=== PATIENT | female | born 1990 | race African-American/Black ===

== ENCOUNTER 2020-02-28 22:06 | Emergency (ER) | payer OTHER ==
[~2020-02-28] VITALS: Ht 162.6 cm; Wt 70.8 kg
[2020-02-28 22:10] VITALS: BP 132/92
--- NOTE | 2020-02-28 22:22 | Emergency Room Report ---
History of Present Illness General Chief Complaint: Flu Like Symptoms Source: Patient Present Illness HPI Disclaimer: Please note that this report is being documented using DRAGON technology. This can lead to erroneous entry secondary to incorrect interpretation by the dictating instrument. HPI: 29-year-old otherwise healthy female presents for evaluation of "heartburn. " She is recently returned from [place] after which she began to experience flu- like symptoms approximately 1 week ago including anosmia, loss of taste, fatigue , generalized body aches. She suspect she has COVID-19 and has been quarantining. She is also being treated for UTIs on Keflex. She states she has been taking Keflex and has since been experiencing urticaria causing her to stop taking it today. This afternoon after eating a sandwich she experienced some severe acid reflux type symptoms causing burning and squeezing sensation in the chest, diaphoresis and mild epigastric discomfort. Denies shortness of breath, loss of consciousness. Improved after taking Tums and continues to improve now. She states she has had similar heartburn type symptoms in the past but never this severe. She came in for evaluation of her fear that it may be a complication of COVID-19. She currently denies any chest pain, shortness of breath but is complaining of severe fatigue, exertional dyspnea. Denies fevers, nausea, vomiting, diarrhea. 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: No Patient History Last Menstrual Period: 1 month ago Now: No : 0 Para: 0 Nursing Documentation-PMH Past Medical History: No Stated History Hx Cardiac Problems: No Hx Hypertension: No Hx Pacemaker: No Hx Asthma: No Hx COPD: No Hx Diabetes: No Hx Cancer: No Hx Gastrointestinal Problems: No Hx Dialysis: No History Of Psychiatric Problem: No Hx Neurological Problems: No Hx Cerebrovascular Accident: No Hx Seizures: No Review of Systems All Other Systems: negative except mentioned in HPI Physical Exam Vital Signs Date Time Temp Pulse Resp B/P (MAP) Pulse Ox O2 Delivery O2 Flow Rate FiO2 02/28/20 22:02 98.4 106 18 132/92 (105) 98 Room Air General: Awake and alert, no acute distress HEENT: NC/AT. EOMI. Cardiovascular: Mildly tachycardic Resp: Normal work of breathing. No cough, wheezing or crackles appreciated Abdomen: Abdomen is soft, nondistended. Nontender Skin: Intact. No abrasions, laceration or rash over the exposed skin MSK: Normal tone and bulk. Moving all extremities. No obvious deformity. Neuro: Awake and alert. Mentating appropriately. Medical Decision Making Diagnostic Impression: Primary Impression: Suspected 2019 novel coronavirus infection Additional Impressions: GERD (gastroesophageal reflux disease) Medication reaction ER Course 29-year-old female presents for evaluation of chest discomfort. Differential includes is not meant to GERD, gastritis, gastroenteritis, bronchospasm, esophagitis, viral syndrome, COVID-19, ACS, arrhythmia, pneumonia, bronchitis, pneumothorax, untreated UTI, pancreatitis to name a few. Patient arrived mildly tachycardic in triage however this is improved. She is saturating 98% in no respiratory distress and denies respiratory symptoms at this time. EKG is nonischemic and chest x-ray shows no evidence of infiltrate. Labs have returned within normal limits including a negative troponin. I feel her symptoms are secondary to GERD and likely COVID-19 infection given her symptoms of anosmia, loss of taste and her recent travel. I instructed her to obtain outpatient COVID-19 testing and to inform all close contacts as well as the airlines she recently used to travel from [place]. Patient states she will get tested tomorrow. She is to remain in isolation as she has been. Regarding her reaction to Keflex, we will discontinue Keflex and start her on Macrobid for treatment of her UTI. She is stable for outpatient follow-up. We discussed reasons to return to the emergency department and need to follow-up with her PMD. She understands and agrees with this treatment plan will be discharged home. Laboratory Tests Test 02/28/20 22:35 White Blood Count 9.7 K/UL (4.8-10.8) Red Blood Count 5.55 M/UL (4.20-5.40) H Hemoglobin 15.5 G/DL (12.0-16.0) Hematocrit 47.0 % (37.0-47.0) Mean Corpuscular Volume 85 FL (80-99) Mean Corpuscular Hemoglobin 27.9 PG (27.0-31.0) Mean Corpuscular Hemoglobin Concent 32.9 G/DL (32.0-36.0) Red Cell Distribution Width 12.1 % (11.6-14.8) Platelet Count 243 K/UL (150-450) Mean Platelet Volume 7.0 FL (6.5-10.1) Neutrophils (%) (Auto) 70.7 % (45.0-75.0) Lymphocytes (%) (Auto) 24.3 % (20.0-45.0) Monocytes (%) (Auto) 3.6 % (1.0-10.0) Eosinophils (%) (Auto) 0.6 % (0.0-3.0) Basophils (%) (Auto) 0.8 % (0.0-2.0) Sodium Level 137 MMOL/L (136-145) Potassium Level 3.1 MMOL/L (3.5-5.1) L Chloride Level 100 MMOL/L (98-107) Carbon Dioxide Level 23 MMOL/L (21-32) Anion Gap 14 mmol/L (5-15) Blood Urea Nitrogen 10 mg/dL (7-18) Creatinine 1.1 MG/DL (0.55-1.30) Estimated Glomerular Filtration Rate > 60 mL/min (>60) Glucose Level 104 MG/DL (74-106) Calcium Level 9.9 MG/DL (8.5-10.1) Total Bilirubin 0.3 MG/DL (0.2-1.0) Aspartate Amino Transferase (AST) 24 U/L (15-37) Alanine Aminotransferase (ALT) 45 U/L (12-78) Alkaline Phosphatase 66 U/L (46-116) Troponin I 0.000 ng/mL (0.000-0.056) Total Protein 8.2 G/DL (6.4-8.2) Albumin 4.9 G/DL (3.4-5.0) Globulin 3.3 g/dL Albumin/Globulin Ratio 1.5 (1.0-2.7) Lipase 119 U/L (73-393) EKG Diagnostic Results EKG Time: 22:50 Rate: normal Rhythm: NSR ST Segments: no acute changes Other Impression Sinus rhythm, normal axis, normal intervals, nonspecific T wave flattening. No significant ST segment changes. Rhythm Strip Diag. Results Rhythm Strip Time: 22:50 EP Interpretation: yes Rate: 78 Rhythm: NSR, no PVC's, no ectopy Chest X-Ray Diagnostic Results Chest X-Ray Diagnostic Results : Chest X-Ray Ordered: Yes # of Views/Limited/Complete: 1 View Indication: Chest Pain EP Interpretation: Yes Interpretation: no consolidation, no effusion, no pneumothorax, no acute cardiopulmonary disease Impression: No acute disease Electronically Signed by: Electronically signed by Dr. Krzysztof Austin Last Vital Signs Date Time Temp Pulse Resp B/P (MAP) Pulse Ox O2 Delivery O2 Flow Rate FiO2 02/28/20 22:02 98.4 106 18 132/92 (105) 98 Room Air Disposition: HOME, SELF-CARE Condition: Stable Scripts Calcium Carbonate/Simethicone (MAALOX ADVANCED TAB CHEW) 1 Each Tab.chew 1 EACH PO TID PRN for GERD for 10 Days, #30 TAB Prov: Krzysztof Austin MD 02/28/20 Famotidine* (Pepcid 20mg tablet*) 20 Mg Tablet 20 MG ORAL DAILY, #30 TAB 0 Refills Prov: Krzysztof Austin MD 02/28/20 Nitrofurantoin Monohyd/M-Cryst* (MACROBID 100 MG*) 100 Mg Capsule 100 MG ORAL EVERY 12 HOURS for 5 Days, #10 CAP Prov: Krzysztof Austin MD 02/28/20 Krzysztof Austin MD Feb 28, 2020 22:22
[2020-02-28] MEDS ORDERED: Mylanta II UD 30ml ORAL ONE (22:30)
[2020-02-28] MEDS ORDERED: Dicyclomine HCl 10mg/5ml oral soln ORAL ONE (22:30)
[2020-02-28] MEDS ORDERED: Lidocaine 2% Visc 15ml soln ORAL ONE (22:30)
--- NOTE | 2020-02-28 22:53 | Diagnostic Imaging Report ---
EXAM: XR Chest, 1 View CLINICAL HISTORY: CP TECHNIQUE: Frontal view of the chest. COMPARISON: None. FINDINGS: Lungs: The lungs are well aerated. No consolidative change. Pleural space: No pleural effusions. No pneumothorax per Heart: Cardiomediastinal silhouette unremarkable per Mediastinum: See above. Bones/joints: Osseous structures are unremarkable. IMPRESSION: No active disease.
[2020-02-28 22:54] LABS: BASOPHILS % (AUTO) 0.8 % (0.0-2.0); EOSINOPHILS % (AUTO) 0.6 % (0.0-3.0); HEMOGLOBIN 15.5 G/DL (12.0-16.0); LYMPHOCYTES % (AUTO) 24.3 % (20.0-45.0); MEAN CORPUSCULAR VOLUME 85 FL (80-99); MONOCYTES % (AUTO) 3.6 % (1.0-10.0); NEUTROPHILS % (AUTO) 70.7 % (45.0-75.0); PLATELET COUNT 243 K/UL (150-450); RED BLOOD COUNT 5.55 M/UL (4.20-5.40); RED CELL DISTRIBUTION WIDTH 12.1 % (11.6-14.8); WHITE BLOOD COUNT 9.7 K/UL (4.8-10.8)
[2020-02-28 23:06] LABS: ANION GAP 14 mmol/L (5-15); BLOOD UREA NITROGEN 10 mg/dL (7-18); CALCIUM 9.9 MG/DL (8.5-10.1); CARBON DIOXIDE 23 MMOL/L (21-32); CHLORIDE 100 MMOL/L (98-107); CREATININE 1.1 MG/DL (0.55-1.30); POTASSIUM 3.1 MMOL/L (3.5-5.1); SODIUM 137 MMOL/L (136-145)
[2020-02-28] MEDS ORDERED: NITROFURANTOIN100 M2 ORAL (23:06)
[2020-02-28 23:11] LABS: ALANINE AMINOTRANSFERASE 45 U/L (12-78); ALBUMIN 4.9 G/DL (3.4-5.0); ALBUMIN/GLOBULIN RATIO 1.5 (1.0-2.7); ALKALINE PHOSPHATASE 66 U/L (46-116); ASPARTATE AMINO TRANSFERASE 24 U/L (15-37); BILIRUBIN,TOTAL 0.3 MG/DL (0.2-1.0)
[2020-02-28] MEDS ORDERED: MAALOX ADVANCE1 EACH PO (23:16)
[2020-02-28] MEDS ORDERED: FAMOTIDINE20 MG ORAL (23:16)
[2020-02-28 23:25] VITALS: BP 125/88
== END 2020-02-28 23:25 | disposition home or self-care (01) ==
LOC: EDBD 22:06 → EMR 22:31
DX: K21.9 Gastro-esophageal reflux disease without esophagitis (principal); Z90.89 Acquired absence of other organs; T36.1X5A Adverse effect of cephalosporins and other beta-lactam antibiotics, initial encounter; Y92.9 Unspecified place or not applicable; L50.9 Urticaria, unspecified; R00.0 Tachycardia, unspecified
CPT/HCPCS: 36415; 71045; 80053; 83690; 84484; 85025; 93005; Z7502; 99284